=== PATIENT | male | born 1955 | race Caucasian/White ===

== ENCOUNTER 2019-10-23 07:48 | Day surgery (SDC) | payer MEDICARE ==
[~2019-10-23] VITALS: Ht 177.8 cm; Wt 86.2 kg
[~2019-10-23 07:48] MED LIST: CYMBALTA30 MG PO; FLOMAX0.4 MG PO; HYDROCODON-ACE1 EAC7 PO; KLONOPIN1 MG PO; NEURONTIN600 MG PO; PROSCAR5 MG PO; ZANAFLEX4 MG PO; ZOLOFT25 MG PO
[2019-10-23 08:30] LABS: HEMATOCRIT 45.2 % (42.0-54.0); HEMOGLOBIN 15.6 g/dL (13.5-17.5); MCHC 34.5 g/dL (31.0-37.0); MCV 92.8 fL (80.0-100.0); MEAN PLATELET VOLUME 9.3 fL (7.4-10.4); RBC 4.87 10x6/uL (4.20-6.10); RDW 13.1 % (11.5-14.5); WBC 4.9 10x3/uL (4.8-10.8)
[2019-10-23 09:26] VITALS: BP 128/87; Ht 177.8 cm; Wt 86.2 kg
--- NOTE | 2019-10-23 13:03 | NUR ---
1230 IV REMOVED AND PRESSURE HELD
--- NOTE | 2019-11-03 08:35 | OP ---
PATIENT NAME: YANA JENSEN MEDICAL RECORD: [id number] :51 LOCATION:[facility] ADMISSION DATE: SURGEON: BETO HEREDIA MD DATE OF OPERATION: 10/23/2019 PREOPERATIVE DIAGNOSIS: Bilateral hip, mild to moderate osteoarthritis. POSTOPERATIVE DIAGNOSIS: Bilateral hip, mild to moderate osteoarthritis. PROCEDURE: Bilateral hip injection under TIVA anesthesia with fluoroscopy. SURGEON: Beto Heredia MD ANESTHESIA: TIVA. INTRAOPERATIVE COMPLICATIONS: None. SUMMARY OF PATHOLOGIC FINDINGS: Consistent with the preoperative radiographs, the patient had [id number] OA of bilateral hips and as per the patient's desire, he is trying to avoid an operative intervention. OPERATIVE SUMMARY IN DETAIL: After obtaining the appropriate preoperative orthopedic surgery consent as well as anesthetic consultation, evaluation, and clearance, the patient was brought to the operating room and placed on the operating table in supine position. After adequate TIVA anesthesia was administered, bilateral hips were prepped and draped in routine sterile fashion. Under fluoroscopic guidance, an 18-gauge spinal needle was directed into the patient's left hip capsule first. Small amount of Isovue was placed to be sure that the tip was in the appropriate position. At this point, 40 mg of Depo-Medrol with approximately 6 cc of 0.25% Marcaine were injected into the hip under fluoroscopy. The needle tip was withdrawn. Bandage was applied. Attention was then turned to the right hip, and again under fluoroscopic guidance an 18-gauge needle was directed into the hip capsule. Care was taken to avoid the neurovascular structures. Small amount of Isovue was again put in this side to be sure that the needle tip was in the appropriate position for intraarticular injection and again the exact same injection of 40 cc of Depo-Medrol and 6 cc of Marcaine were injected into the patient's hip. Having completed this, a bandage was applied. The patient was then awakened and taken back to outpatient in stable condition. All final needle and sponge counts were correct. TRANSINT:[id number] Voice Confirmation ID: [id number] DOCUMENT ID: [id number] BETO HEREDIA MD at 0835 CC: [id number] DICTATION DATE: 10/31/19 1113 [employer]: 10/31/19 1600 DEP [facility] [place] 10/23/19 [facility] [address] [facility] [place] [id number]
== END 2019-10-23 12:45 | disposition home or self-care (01) ==
LOC: D.PAN 07:48 → D.OPS 14:30
PROVIDERS: Anesthesiology; ATTEND Orthopaedic Surgery
DX: M25.551 Pain in right hip (principal); M25.552 Pain in left hip; M16.0 Bilateral primary osteoarthritis of hip; M54.16 Radiculopathy, lumbar region